=== PATIENT | female | born 1970 | race Caucasian/White ===

== ENCOUNTER 2019-04-25 10:59 | Emergency (ER) | payer OTHER ==
[~2019-04-25] VITALS: Ht 157.5 cm; Wt 115.7 kg
[2019-04-25 11:12] VITALS: BP_SYST 152
--- NOTE | 2019-04-25 11:15 | NUR ---
Patient to ER bed 8 to gown for evaluation. Side rails up. Report given to Lavonne BROWN.
--- NOTE | 2019-04-25 11:25 | NUR ---
ER Dr. BARTHOLOMEW at bedside examining patient.
--- NOTE | 2019-04-25 11:29 | NUR ---
PATIENT CAME IN COMPLAINING OF UPPER ABDOMINAL PAIN RADIATING TO LOWER BACK FOR ABOUT 4 TO 5 DAYS. PATIENT COMPLAINING OF PAIN 7/10 AT THE MOMENT. PATIENT NOT COMPLAINING OF SOB. PATIENT COMPLAINING OF NAUSEA BUT NO VOMITING. PATIENT STATES SHE TOOK PEPTO BISMO BUT MADE HER FEEL WORST. PATIENT ALERT AND ORIENTED X4.
--- NOTE | 2019-04-25 11:47 | NUR ---
PATIENT LEAVING TO CT VIA GURNEY IN STABLE CONDITION.
--- NOTE | 2019-04-25 11:55 | NUR ---
PATIENT BACK FROM CT IN STABLE CONDITION.
[2019-04-25 12:01] LABS: BILIRUBIN,URINE NEGATIVE (NEGATIVE); BLOOD, URINE NEGATIVE (NEGATIVE); CLARITY/URINE CLEAR (CLEAR); COLOR,URINE YELLOW (YELLOW); GLUCOSE,URINE NEGATIVE (NEGATIVE); KETONES,URINE NEGATIVE (NEGATIVE); LEUKOCYTE ESTERASE ,URINE NEGATIVE (NEGATIVE); NITRITE, URINE NEGATIVE (NEGATIVE); PH,URINE 6.5 (5.0-8.0); PROTEIN URINE NEGATIVE (NEGATIVE); UROBILINOGEN,URINE 0.2 (0.2-1.0)
--- NOTE | 2019-04-25 12:16 | NUR ---
PATIENT GETTING LABS DRAWN AT BEDSIDE.
[2019-04-25 12:34] LABS: EOSINOPHILS # (AUTO) 0.2 K/uL (0.0-0.4); HEMATOCRIT 33.4 % (36-48); HEMOGLOBIN 11.2 g/dL (12.0-16.0); LYMPHOCYTES # (AUTO) 1.4 K/uL (1.0-5.5); LYMPHOCYTES % (AUTO) 23.5 % (20.5-51.5); MEAN CORPUSCULAR HEMOGLOBIN 30 pg (27-31); MEAN CORPUSCULAR HGB CONC 33 % (32-36); MEAN CORPUSCULAR VOLUME 89 fL (79.0-98.0); MONOCYTES # (AUTO) 0.7 K/uL (0.0-1.0); MONOCYTES % (AUTO) 12.1 % (1.7-9.3); PLATELET COUNT (AUTO) 233 K/uL (130-430); RED BLOOD CELL COUNT(AUTO) 3.75 MIL/uL (4.2-6.2); RED CELL DISTRIBUTION WIDTH 16.2 % (9.0-15.0); WHITE BLOOD COUNT (AUTO) 5.9 K/uL (4.8-10.8)
[2019-04-25 12:35] LABS: BASOPHILS % (AUTO) 0.1 % (0.0-2.0); NEUTROPHILS # (AUTO) 3.6 K/uL (1.8-7.7); NEUTROPHILS % (AUTO) 60.3 % (40.0-70.0)
[2019-04-25 12:43] LABS: CALCIUM 8.6 mg/dL (8.4-11.0); CREATININE 0.79 mg/dL (0.55-1.30); POTASSIUM 4.4 mmol/L (3.5-5.1)
[2019-04-25 13:08] LABS: TOTAL BILIRUBIN 0.1 mg/dL (0.0-1.0)
[2019-04-25 13:12] VITALS: BP_SYST 152
--- NOTE | 2019-04-25 13:12 | NUR ---
Patient given written and verbal discharge instructions and verbalizes understanding. ER MD discussed with patient the results and treatment provided. Patient in stable condition. ID arm band removed. Rx of protonix and ultram given. Patient educated on pain management and to follow up with PMD. Pain Scale 4/10 TOLERABLE. Patient sent home with Rx of pain meds. Opportunity for questions provided and answered. Medication side effect fact sheet provided.
--- NOTE | 2019-04-26 12:53 | NUR ---
RECEIVED DISCREPTANCY FROM RADIOLOGY, DISCUSSED WITH DR BASS, CALLED PT AT GIVEN NUMBER , LEFT MESSAGE.
== END 2019-04-25 13:12 | disposition home or self-care (01) ==
LOC: SED 10:59
DX: R10.12 Left upper quadrant pain (principal); E03.9 Hypothyroidism, unspecified
CPT/HCPCS: 36415; 80053; 81003; 83690-TC; 85025; 99284

== ENCOUNTER 2022-04-14 14:28 | Emergency (ER) | payer OTHER ==
[~2022-04-14] VITALS: Ht 157.5 cm; Wt 113.4 kg
[2022-04-14 14:37] VITALS: BP_SYST 166
--- NOTE | 2022-04-14 14:47 | NUR ---
PT TRAIGED AND PLACED IN ED WAITING ROOM FOR AVAILABLE BED IN MAIN ED. ER MD AWARE OF MSE NEEDS
[2022-04-14 15:08] LABS: BILIRUBIN,URINE NEGATIVE (NEGATIVE); BLOOD, URINE 1+ (NEGATIVE); CLARITY/URINE CLEAR (CLEAR); COLOR,URINE YELLOW (YELLOW); GLUCOSE,URINE NEGATIVE (NEGATIVE); KETONES,URINE NEGATIVE (NEGATIVE); LEUKOCYTE ESTERASE ,URINE NEGATIVE (NEGATIVE); NITRITE, URINE NEGATIVE (NEGATIVE); PROTEIN URINE NEGATIVE (NEGATIVE); UROBILINOGEN,URINE 0.2 (0.2-1.0)
[2022-04-14 15:16] LABS: BACTERIA,URINE FEW /HPF (None Seen); WBC,URINE NONE SEEN /HPF (0-3)
--- NOTE | 2022-04-14 15:26 | NUR ---
COVID-19 swabbed, sent to lab.
[2022-04-14] MEDS ORDERED: MECLIZINE HCL 25 MG TABLET (ANITVERT) PO ONE (23:15)
[2022-04-14] MEDS ORDERED: OXYCODONE/ACETAMINOPHEN 5-325 TABLET PO ONE (23:15)
[2022-04-14] MEDS ORDERED: ACETAMINOPHEN 500 MG TABLET PO ONE (23:15)
[2022-04-14] MEDS ORDERED: MAG HYDROX/AL HYDROX/SIMETH 30 ML, LIDOCAINE VISCOUS 2% 15ML (PO) 15 ML, DICYCLOMINE HC... PO ONE ×3 (23:15)
--- NOTE | 2022-04-14 23:40 | NUR ---
First contact. Pt presently on monitor.
[2022-04-15 00:16] LABS: BASOPHILS # (AUTO) 0.1 K/uL (0.0-0.2); EOSINOPHILS # (AUTO) 0.5 K/uL (0.0-0.4); EOSINOPHILS % (AUTO) 6.2 % (0.0-4.0); HEMATOCRIT 37.2 % (36-48); HEMOGLOBIN 12.8 g/dL (12.0-16.0); LYMPHOCYTES # (AUTO) 2.4 K/uL (1.0-5.5); LYMPHOCYTES % (AUTO) 30.9 % (20.5-51.5); MEAN CORPUSCULAR HEMOGLOBIN 31 pg (27-31); MEAN CORPUSCULAR HGB CONC 34 % (32-36); MEAN CORPUSCULAR VOLUME 89 fL (79.0-98.0); MONOCYTES # (AUTO) 0.6 K/uL (0.0-1.0); NEUTROPHILS # (AUTO) 4.2 K/uL (1.8-7.7); NEUTROPHILS % (AUTO) 53.9 % (40.0-70.0); PLATELET COUNT (AUTO) 210 K/uL (130-430); RED BLOOD CELL COUNT(AUTO) 4.17 MIL/uL (4.2-6.2); RED CELL DISTRIBUTION WIDTH 15.1 % (9.0-15.0); WHITE BLOOD COUNT (AUTO) 7.7 K/uL (4.8-10.8)
[2022-04-15 00:20] LABS: CALCIUM 8.9 mg/dL (8.4-11.0); CREATININE 0.82 mg/dL (0.55-1.30); POTASSIUM 3.9 mmol/L (3.5-5.1)
[2022-04-15 00:25] LABS: ALBUMIN 3.3 g/dL (3.4-4.8); TOTAL BILIRUBIN 0.3 mg/dL (0.0-1.0)
[2022-04-15 01:16] LABS: ERYTHROCYTE SEDIMENTATION RATE 86 MM/HR (0-20)
[2022-04-15 03:46] VITALS: BP_SYST 128
[2022-04-15] MEDS ORDERED: DICY10CA13 PO (04:35)
[2022-04-15] MEDS ORDERED: OMEP40CA20 PO (04:35)
[2022-04-15] MEDS ORDERED: MECL-160 PO (04:35)
[2022-04-15] MEDS ORDERED: TRAM50TA PO (04:35)
--- NOTE | 2022-04-15 04:45 | NUR ---
Patient given written and verbal discharge instructions and verbalizes understanding. ER MD discussed with patient the results and treatment provided. Patient in stable condition. ID arm band removed.Rx of dicyclomine, meclizine, omeprazole, and tramadol given. Patient educated on pain management and to follow up with PMD.Opportunity for questions provided and answered. Medication side effect fact sheet provided.
== END 2022-04-15 04:45 | disposition home or self-care (01) ==
LOC: SED 14:28
DX: M26.602 Left temporomandibular joint disorder, unspecified (principal); G44.209 Tension-type headache, unspecified, not intractable; K29.70 Gastritis, unspecified, without bleeding; R10.12 Left upper quadrant pain; R11.2 Nausea with vomiting, unspecified; Z79.899 Other long term (current) drug therapy; Z20.822 Contact with and (suspected) exposure to COVID-19
CPT/HCPCS: 99284; 87426; 80053; 81000; 83690; 85025; 85651; 36415; 70450; 76376; J8597; J2001